=== PATIENT | male | born 2000 | race Caucasian/White ===

== ENCOUNTER 2022-06-05 03:01 | Emergency (ER) | payer BC, SELFPAY ==
[2022-06-05] MEDS ORDERED: Boostrix 0.5 ML (Tdap) VIAL ONE (03:07)
[2022-06-05] MEDS ORDERED: Acetaminophen 500 MG TAB ONE (03:16)
[2022-06-05] MEDS ORDERED: Lidocaine 1% MPF 2 ML VIAL ONE (03:17)
[2022-06-05] MEDS ORDERED: Bacitracin 1 PK ONE (03:57)
== END 2022-06-05 04:13 | disposition home or self-care (01) ==
LOC: ERS 03:01
DX: S61.511A Laceration without foreign body of right wrist, initial encounter (principal); S61.011A Laceration without foreign body of right thumb without damage to nail, initial encounter; W25.XXXA Contact with sharp glass, initial encounter
CPT/HCPCS: 12001; 90471; 90715